=== PATIENT | male | born 1935 | race Caucasian/White ===

== ENCOUNTER 2017-07-25 12:21 | Observation (INO) | payer MEDICARE, OTHER ==
[2017-07-25] MEDS ORDERED: NovoLOG Insulin SQ PRN (12:51)
--- NOTE | 2017-07-25 13:45 | XRAY ---
Indication: Left upper abdominal pain. Urinary retention. Hypertension. Comparison: Chest exam October 01, 2009. 2 views of the abdomen nonacute and nonobstructed. Solid organs unremarkable. Scattered vascular calcifications including pelvic phleboliths. Osseous structures intact with mild osteopenia and mild lower lumbar degenerative spondylosis. Single PA chest again demonstrates normal heart and lungs. Bony thorax intact again with right shoulder arthroplasty. Impression: Nonacute abdomen with chronic features. Stable nonacute 1 view chest.
--- NOTE | 2017-07-25 14:33 | XRAY ---
Indication: Syncope. Two-dimensional sonogram and color Doppler imaging of the carotid arteries of the neck performed. Comparison: None Examination of the right carotid circulation demonstrates slightly tortuous common carotid artery. Minimal heterogeneous plaquing at the level of the bulb extending into the origin of the internal and external carotid arteries. PSV of the CCA is 82 cm/s. PSV of the ICA is 87 cm/s. ICA/CCA ratio is 1.1. Normal antegrade vertebral artery flow. Examination of the left carotid circulation demonstrates minimal plaquing at the origin of the external carotid artery. Internal carotid artery negative for focal plaquing, critical stenosis, or obstruction. PSV of the CCA is 98 cm/s. PSV of the ICA is 73 cm/s. ICA/CCA ratio is 0.7. Normal antegrade vertebral artery flow. Impression: Minimal arteriosclerotic plaquing bilaterally. Velocity measurements and ratios are negative for hemodynamically significant flow-limiting stenosis.
[2017-07-25 14:52] LABS: BASOPHIL % 0.1 % (0.0-0.4); Basophil (Absolute #) 0.01 (0-0.4); Eosinophil % 1.6 % (0.00-5.0); Eosinophil (Absolute #) 0.11 (0-0.5); Granulocyte Absolute (ANC) 4.59 (1.4-6.9); Granulocytes % 65.9 % (36.0-66.0); Hematocrit 42.1 % (42-50); Hemoglobin 14.2 gm/dl (12.5-18.0); Lymphocyte (Absolute #) 1.47 (1.0-4.6); Lymphocytes % 21.1 % (24.0-44.0); Mean Cell Volume 90.7 fl (78-100); Mean Corpuscular Hemoglobin 30.6 pg (26-32); Mean Corpuscular Hgb Concent. 33.7 g/dl (32-36); Mean Platelet Volume 9.8 fl (6-9.5); Monocyte (Absolute #) 0.79 (0.0-1.3); Monocytes % 11.3 % (0.0-12.0); Platelet Count 183 K/mm3 (150-450); Red Blood Count 4.64 M/mm3 (4.1-5.6); Red Cell Distribution Width 13.5 % (11.5-14.0)
[2017-07-25] MEDS: Sodium Chloride 0.9% 1000 ML 1,000 ML IV SCH (15:00)
[2017-07-25 15:11] LABS: ALKALINE PHOSPHATASE 81 U/L (38-126); ANION GAP 14.9 MEQ/L (5-15); BLOOD UREA NITROGEN 20 mg/dL (9-20); CHLORIDE 101 mmol/L (98-107); Calcium 9.8 mg/dL (8.4-10.2); Carbon Dioxide 27 mmol/L (22-30); Glucose 99 mg/dL (74-106); Potassium 4.5 mmol/L (3.5-5.1); SGOT/AST 20 U/L (17-59); SODIUM 138 mmol/L (137-145); Total Protein 6.7 g/dL (6.3-8.2)
[2017-07-25 15:17] LABS: SGPT/ALT 13 U/L (0-50)
[2017-07-25] MEDS: Pepcid 20 MG PO SCH ×2 (15:27→21:33)
[2017-07-25] MEDS ORDERED: NORCO 5/325 MG PO PRN (16:07)
[2017-07-25 16:11] LABS: Appearance CLEAR (CLEAR); Bilirubin NEGATIVE (NEGATIVE); Blood TRACE NON-HEM Ery/ul (0-5); Glucose NEGATIVE (NEGATIVE); Ketones NEGATIVE (NEGATIVE); Leukocyte Esterase NEGATIVE (NEGATIVE); Nitrite NEGATIVE (NEGATIVE); Protein,Urine Dip NEGATIVE (Negative); Specific Gravity 1.015 (1.005-1.025); Urobilinogen NORMAL mg/dL (0-1)
[2017-07-25] MEDS ORDERED: ZOFRAN ODT 4 MG PO PRN (16:15)
[2017-07-25] MEDS ORDERED: NON-FORMULARY ITEM (Ondansetron Hcl [Zofran] 4 MG) PO SCH (16:15)
[2017-07-25] MEDS ORDERED: MEDICATION INTERVENTION PO SCH (16:30)
[2017-07-25] MEDS: Neurontin 400 MG PO SCH ×2 (16:51→21:33)
[2017-07-25] MEDS: Sinemet 25/250 MG PO SCH ×2 (16:51→21:33)
[2017-07-25] MEDS ORDERED: TYLENOL 325 MG PO PRN (17:45)
[2017-07-25] MEDS ORDERED: DONEPEZIL HCL PO SCH (22:00)
[2017-07-25] MEDS ORDERED: Seroquel 25 MG PO SCH (22:00)
[2017-07-25] MEDS ORDERED: Zanaflex 4 MG PO SCH (22:00)
[2017-07-25] MEDS ORDERED: MEMANTINE HCL PO SCH (22:00)
[2017-07-26] MEDS: Sodium Chloride 0.9% 1000 ML 1,000 ML IV SCH (01:01)
[2017-07-26 03:02] LABS: Prostate Specific Antigen 0.91 ng/mL (<=7.20)
[2017-07-26 05:50] LABS: ANION GAP 10.7 MEQ/L (5-15); BLOOD UREA NITROGEN 17 mg/dL (9-20); CHLORIDE 104 mmol/L (98-107); Calcium 8.7 mg/dL (8.4-10.2); Carbon Dioxide 27 mmol/L (22-30); Glucose 86 mg/dL (74-106); Potassium 4.5 mmol/L (3.5-5.1); SODIUM 137 mmol/L (137-145)
[2017-07-26 07:52] VITALS: BP 125/59; O2SAT 96
[2017-07-26 08:09] VITALS: PULSE 56
[2017-07-26] MEDS: Pepcid 20 MG PO SCH (08:47)
[2017-07-26] MEDS: Neurontin 400 MG PO SCH (08:47)
[2017-07-26] MEDS: Sinemet 25/250 MG PO SCH (08:48)
--- NOTE | 2017-07-26 09:00 | PCM.DS ---
Discharge Summary Date of Admission: 07/25/17 12:31 Admitting Physician: PORSHA MERLOS Primary Care Provider: PORSHA MERLOS Allergies Allergies Sulfa (Sulfonamide Antibiotics) Allergy (Severe, Verified 02/07/17 16:35) Swelling of Tongue and Lips Hospital Summary - Hospital Course Hospital Course: Pt is 82 yo male with Parkinson's admitted to [facility] after report of syncope x 2 at home, with BP 80s systolic at home. His labs were basically normal. He had been c/o urinary retention intermittently, found to have 500cc postvoid residual with justice catheter so it was anchored and he will be discharged on same to f/u with Dr. Tomas. He has been tolerating po (although chronic low appetite). Did have 1 bp overnight 80s systolic; will decrease diovan from 80mg /d to 40mg/d and recheck in 1 wk, may need to d/c altogether with his weight loss due to Parkinson's. On telemetry, he did have frequent PACs, checking EKG , may need to consult with cardiology about his rhythm. Plan is to d/c home today. - Vitals & Intake/Output Vital Signs: Vital Signs Temperature 97.5 F 07/26/17 08:08 Pulse Rate 56 L 07/26/17 08:08 Respiratory Rate 20 07/26/17 08:08 Blood Pressure 125/59 07/26/17 08:08 O2 Sat by Pulse Oximetry 96 07/26/17 08:08 Intake & Output: Intake & Output 07/23/17 07/24/17 07/25/17 07/26/17 11:59 11:59 11:59 11:59 Intake Total 1840 Output Total 1100 Balance 740 Weight 78 kg - Lab Result Diagrams: 07/25/17 14:40 07/26/17 05:04 Lab Results-Last 24 Hrs: Accuchecks Date 07/25/17 Date 07/25/17 Date 07/25/17 Time 07:30 Time 15:55 Accucheck Value: 78 Accucheck Value: 98 Accucheck Value: 92 Lab Results-Last 24 Hours 07/25/17 07/25/17 07/25/17 Range/Units 14:40 14:40 14:40 WBC 7.0 (4.0-10.5) K/mm3 RBC 4.64 (4.1-5.6) M/mm3 Hgb 14.2 (12.5-18.0) gm/dl Hct 42.1 (42-50) % MCV 90.7 (78-100) fl MCH 30.6 (26-32) pg MCHC 33.7 (32-36) g/dl RDW 13.5 (11.5-14.0) % Plt Count 183 (150-450) K/mm3 MPV 9.8 H (6-9.5) fl Gran % 65.9 (36.0-66.0) % Eos # (Auto) 0.11 (0-0.5) Absolute Lymphs (auto) 1.47 (1.0-4.6) Absolute Monos (auto) 0.79 (0.0-1.3) Lymphocytes % 21.1 L (24.0-44.0) % Monocytes % 11.3 (0.0-12.0) % Eosinophils % 1.6 (0.00-5.0) % Basophils % 0.1 (0.0-0.4) % Absolute Granulocytes 4.59 (1.4-6.9) Basophils # 0.01 (0-0.4) Sodium 138 (137-145) mmol/L Potassium 4.5 (3.5-5.1) mmol/L Chloride 101 (98-107) mmol/L Carbon Dioxide 27 (22-30) mmol/L Anion Gap 14.9 (5-15) MEQ/L BUN 20 (9-20) mg/dL Creatinine 0.90 (0.66-1.25) mg/dL Estimated GFR > 60.0 ML/MIN Glucose 99 (74-106) mg/dL Calcium 9.8 (8.4-10.2) mg/dL Total Bilirubin 0.30 (0.2-1.3) mg/dL AST 20 (17-59) U/L ALT 13 (0-50) U/L Alkaline Phosphatase 81 (38-126) U/L Serum Total Protein 6.7 (6.3-8.2) g/dL Albumin 4.0 (3.5-5.0) g/dL Prostate Specific Ag 0.91 (<=7.20) ng/mL Free PSA 21 % Ur Collection Type Urine Color (YELLOW) Urine Appearance (CLEAR) Urine pH (5-6) Ur Specific [place] (1.005-1.025) Urine Protein (Negative) Urine Ketones (NEGATIVE) Urine Blood (0-5) [place]/ul Urine Nitrite (NEGATIVE) Urine Bilirubin (NEGATIVE) Urine Urobilinogen (0-1) mg/dL Ur Leukocyte Esterase (NEGATIVE) Urine Microscopic RBC (0-2) /HPF Urine Glucose (NEGATIVE) mg/dL Specimen Received 07/25/17 07/26/17 Range/Units Unknown 05:04 WBC (4.0-10.5) K/mm3 RBC (4.1-5.6) M/mm3 Hgb (12.5-18.0) gm/dl Hct (42-50) % MCV (78-100) fl MCH (26-32) pg MCHC (32-36) g/dl RDW (11.5-14.0) % Plt Count (150-450) K/mm3 MPV (6-9.5) fl Gran % (36.0-66.0) % Eos # (Auto) (0-0.5) Absolute Lymphs (auto) (1.0-4.6) Absolute Monos (auto) (0.0-1.3) Lymphocytes % (24.0-44.0) % Monocytes % (0.0-12.0) % Eosinophils % (0.00-5.0) % Basophils % (0.0-0.4) % Absolute Granulocytes (1.4-6.9) Basophils # (0-0.4) Sodium 137 (137-145) mmol/L Potassium 4.5 (3.5-5.1) mmol/L Chloride 104 (98-107) mmol/L Carbon Dioxide 27 (22-30) mmol/L Anion Gap 10.7 (5-15) MEQ/L BUN 17 (9-20) mg/dL Creatinine 0.80 (0.66-1.25) mg/dL Estimated GFR > 60.0 ML/MIN Glucose 86 (74-106) mg/dL Calcium 8.7 (8.4-10.2) mg/dL Total Bilirubin (0.2-1.3) mg/dL AST (17-59) U/L ALT (0-50) U/L Alkaline Phosphatase (38-126) U/L Serum Total Protein (6.3-8.2) g/dL Albumin (3.5-5.0) g/dL Prostate Specific Ag (<=7.20) ng/mL Free PSA % Ur Collection Type CCMS Urine Color YELLOW (YELLOW) Urine Appearance CLEAR (CLEAR) Urine pH 5.0 (5-6) Ur Specific [place] 1.015 (1.005-1.025) Urine Protein NEGATIVE (Negative) Urine Ketones NEGATIVE (NEGATIVE) Urine Blood TRACE NON-HEM (0-5) [place]/ul Urine Nitrite NEGATIVE (NEGATIVE) Urine Bilirubin NEGATIVE (NEGATIVE) Urine Urobilinogen NORMAL (0-1) mg/dL Ur Leukocyte Esterase NEGATIVE (NEGATIVE) Urine Microscopic RBC 0-2 (0-2) /HPF Urine Glucose NEGATIVE (NEGATIVE) mg/dL Specimen Received 07-25-17 1600 Micro Results-Entire Visit: Accuchecks Date 07/25/17 Date 07/25/17 Date 07/25/17 Time 07:30 Time 15:55 Accucheck Value: 78 Accucheck Value: 98 Accucheck Value: 92 - Radiology Exams Ordered Rad Exams-Entire Visit: Radiology Procedures Category Date Time Status CAROTID BILATERAL [US] Routine Exams 07/25/17 13:15 Completed ECHO W/2D AND DOPPLER [US] Routine Exams 07/25/17 13:15 Taken OBSTR/ACUTE ABDOMEN SERIES Routine Exams 07/25/17 13:32 Completed - Procedures and Test Procedures and Tests throughout Hospitalization: Therapy Orders & Screens 07/25/17 13:05 PT Eval & Treat ( Order) ROUTINE Reason for Eval:: for balance and for blister right plantar foot Diagnosis: syncope,hypotention,parkinsons,urinary retention,abd pain 07/26/17 08:54 EKG ROUTINE Comment: Diagnosis: syncope Discharge Exam General Appearance: no apparent distress, alert Neurologic Exam: oriented x 3, cooperative Skin Exam: normal color, warm, dry, No rash Respiratory Exam: normal breath sounds, lungs clear, No crackles/rales, No rhonchi, No wheezing Cardiovascular Exam: normal heart sounds, other (regularly irregula), No murmur Gastrointestinal/Abdomen Exam: soft, normal bowel sounds, No tenderness Extremity Exam: No pedal edema, No swelling Back Exam: normal inspection, No rash Final Diagnosis/Problem List - Final Discharge Diagnosis/Problem (1) Episode of syncope Current Visit: Yes Status: Acute Onset Date: ~07/25/17 Assessment & Plan: Likely due to hypotension. Echo pending. Carotid dopplers non occluded. (2) Hypotension Current Visit: Yes Status: Acute Onset Date: ~07/25/17 Assessment & Plan: Valsartan decreased from 80mg/d to 40mg/d. (3) Parkinsons disease Current Visit: Yes Status: Chronic (4) Urinary retention Current Visit: Yes Status: Acute Onset Date: ~07/25/17 Assessment & Plan: Justice in place, will leave it until f/u with urology. - Discharge Disposition: Home, Self-Care Condition: Stable Prescriptions: New Valsartan 40 mg PO DAILY #30 tablet Continue Linaclotide [Linzess] 290 mcg PO DAILY Aspirin [[place] Aspirin] 81 mg PO DAILY Metformin HCl 500 mg [Glucophage 500 MG] 500 mg PO BID Gabapentin 400 mg [Neurontin 400 MG] 400 mg PO QID Carbidopa/Levodopa [Carbidopa-Levodopa 25-250 Tab] 1 each PO TID Omeprazole 20 mg PO DAILY Tizanidine HCl 4 mg [Zanaflex 4 MG] 4 mg PO HS Quetiapine Fumarate 25 mg [Seroquel 25 MG] 25 mg PO HS Ondansetron HCl [Zofran] 4 mg PO Q8H Memantine HCl/Donepezil HCl [Namzaric 28 mg-10 mg Capsule] 1 each PO HS Hydrocodone Bit/Acetaminophen [Hydrocodon-Acetaminophen 5-325] 1 each PO Q8H PRN PRN Reason: Pain Discontinued Valsartan [Diovan] 80 mg PO DAILY Follow up with: KENYETTA TOMAS [COURTESY STAFF] - 08/03/17 10:45 am PORSHA MERLOS [Primary Care Provider] - 1 Week
[2017-07-26] MEDS ORDERED: ECOTRIN 81 MG PO SCH (10:00)
[2017-07-26] MEDS ORDERED: Protonix 40MG Tablet PO SCH (10:00)
[2017-07-26] MEDS ORDERED: DIOVAN 80 MG PO SCH ×2 (10:00)
[2017-07-26] MEDS ORDERED: NON-FORMULARY ITEM (Omeprazole [Omeprazole] 20 MG) PO SCH (10:00)
--- NOTE | 2017-07-27 07:45 | ECHO ---
Transthoracic echocardiographic examination and color Doppler was done on 07/25/2017. INDICATION: Syncope. The study was somewhat limited. The left ventricle only partially visualized. The estimated global left ventricular ejection fraction is around 50%. There appears to be some left ventricular hypertrophy. There is trace tricuspid regurgitation. Right ventricular systolic pressure of 28 mm of [place]. IMPRESSION: THIS IS A FAIRLY LIMITED STUDY BECAUSE OF A LIMITED ACOUSTIC WINDOW.
== END 2017-07-26 11:33 | disposition home or self-care (01) ==
LOC: MED SURG 12:31
PROVIDERS: ADMIT Family Medicine; ATTEND Family Medicine
DX: R55 Syncope and collapse (principal); I95.9 Hypotension, unspecified; G20 Parkinson's disease; R33.9 Retention of urine, unspecified; L57.0 Actinic keratosis; R10.9 Unspecified abdominal pain; E11.40 Type 2 diabetes mellitus with diabetic neuropathy, unspecified; Z79.4 Long term (current) use of insulin; Z79.899 Other long term (current) drug therapy
CPT/HCPCS: 36415; 74022; 80048; 80053; 81000; 82962; 84153; 84154; 85025; 93005; 93268; 93306; 93880; A9270-GY; G0378

== ENCOUNTER 2017-08-19 21:40 | Emergency (ER) | payer MEDICARE, OTHER ==
--- NOTE | 2017-08-19 22:28 | ERPHSYRPT ---
- History of Present Illness Time Seen by Provider: 08/19/17 22:20 Source: family, EMS Patient Subjective Stated Complaint: pt states fell after standing up. hit right chest on furniture. pain in right ribs. bruising noted to both arms. abrasion noted to left elbow. doesnt know what happened. Triage Nursing Assessment: alert and slightly confused.. states this is normal. noted abrasion to left cheek. states has his glasses on when he fell. small abrasion ro right cheek. states he is unsteady on his feet due to Parkinsons. denies neck pain.. right rib pain..pain on palpation and movement. states he thinks he hit it on a TV cabinet. lungs clear . abdomen soft, non tender. noted bilateral bruising to both arms.. abrasion to left elbow.. slight pain with movement.. + radial pulses present.. denies hip or leg pain .. states just feels heavy. + pedal pulses bilateral. neuro intact.. 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 OROURKE. aware of date, time and location. Physician History: The patient is an 82-year-old male with Parkinson's dementia brought in by ambulance from home where his gives most of the history. The patient is coherent at this time and knows that he fell while he was at home trying to answer the door when he was expecting his daughter. He thinks he struck his left side of his face on a piece of furniture and his right ribs and right shoulder on some furniture. His thinks his blood pressure my have been low. 3 weeks ago he was in the hospital for low blood pressure and his antihypertensives have been lowered. The daughter took his blood pressure after the incident and it was 70s over 50. Currently he complains of pain to his left cheek, right shoulder, and right lower ribs. His past medical history is significant for Parkinson's dementia, hypertension, right shoulder replacement, diabetes, and GERD. Occurred: just prior to arrival Reason for Fall: fainted, fell from standing pos Injuries/Pain Location: face, upper extremity (right shoulder), chest Loss of Consciousness: brief (seconds) Quality: aching, sharpness Severity of Pain-Max: moderate Severity of Pain-Current: moderate Modifying Factors: Improves With: nothing Associated Symptoms (Fall): chest pain, extremity injury Allergies/Adverse Reactions: Sulfa (Sulfonamide Antibiotics) Allergy (Severe, Verified 02/07/17 16:35) Swelling of Tongue and Lips Home Medications: Aspirin [[place] Aspirin] 81 mg PO DAILY 02/07/17 [History] Carbidopa/Levodopa [Carbidopa-Levodopa 25-250 Tab] 1 each PO TID 02/07/17 [ History] Gabapentin 400 mg [Neurontin 400 MG] 400 mg PO QID 02/07/17 [History] Linaclotide [Linzess] 290 mcg PO DAILY 02/07/17 [History] Metformin HCl 500 mg [Glucophage 500 MG] 500 mg PO BID 02/07/17 [History] Omeprazole 20 mg PO BID 02/07/17 [History] Tizanidine HCl 4 mg [Zanaflex 4 MG] 4 mg PO HS 07/03/17 [History] Hydrocodone Bit/Acetaminophen [Hydrocodon-Acetaminophen 5-325] 1 each PO Q8H PRN 07/25/17 [History] Memantine HCl/Donepezil HCl [Namzaric 28 mg-10 mg Capsule] 1 each PO HS [History] Ondansetron HCl [Zofran] 4 mg PO Q8H 07/25/17 [History] Quetiapine Fumarate 25 mg [Seroquel 25 MG] 25 mg PO HS 07/25/17 [History] Immunizations Up to Date: (unknown) - Review of Systems Constitutional: No Fever, No Chills Eyes: No Symptoms Ears, Nose, & Throat: No Symptoms Respiratory: No Cough, No Dyspnea Cardiac: Chest Pain (rib pain) Abdominal/Gastrointestinal: No Abdominal Pain, No Nausea, No Vomiting, No Diarrhea Genitourinary Symptoms: No Dysuria Musculoskeletal: Fall, Injury Skin: No Rash Neurological: No Dizziness, No Focal Weakness, No Sensory Changes Psychological: No Symptoms Endocrine: No Symptoms Hematologic/Lymphatic: No Symptoms Immunological/Allergic: No Symptoms All Other Systems: Reviewed and Negative - Past Medical History Pertinent Past Medical History: Yes Neurological History: Dementia, Other ENT History: No Pertinent History Cardiac History: Arrhythmia, High Cholesterol, Hypertension Respiratory History: No Pertinent History Endocrine Medical History: Diabetes Type II Musculoskeletal History: Arthritis GI Medical History: Hemorrhoids History: No Pertinent History Psycho-Social History: No Pertinent History Male Reproductive Disorders: No Pertinent History Other Medical History: parkinsons, - Past Surgical History Past Surgical History: Yes Neuro Surgical History: No Pertinent History Cardiac: No Pertinent History Respiratory: No Pertinent History Gastrointestinal: No Pertinent History Genitourinary: No Pertinent History Musculoskeletal: Other Male Surgical History: No Pertinent History Other Surgical History: right shoulder surgery, egd and coloscopy. - Social History Smoking Status: Never smoker Exposure to second hand smoke: No Drug Use: none Patient Lives Alone: No - Nursing Vital Signs Nursing Vital Signs: Initial Vital Signs Temperature 97.5 F 08/19/17 21:48 Pulse Rate 58 L 08/19/17 21:48 Respiratory Rate 20 08/19/17 21:48 Blood Pressure 98/76 08/19/17 21:48 O2 Sat by Pulse Oximetry 95 08/19/17 21:48 Pain Scale Pain Intensity 5 - [place] Coma Score Best Eye Response ([place]): (4) open spontaneously Best Verbal Response ([place]): (5) oriented Best Motor Response ([place]): (6) obeys commands [place] Total: 15 - Physical Exam General Appearance: moderate distress Head Injury: contusions, tenderness (right cheek) Eye Exam: PERRL/EOMI ENT Exam: airway nml Neck Exam: normal inspection, No tenderness Respiratory/Chest Exam: chest tenderness (right rib tenderness), rib tenderness (right lower anterior) Cardiovascular Exam: normal heart sounds, regular rate/rhythm Gastrointestinal Exam: soft, No tenderness, No distention, No guarding, No ecchymosis Rectal Exam: not done Back Exam: normal inspection, No vertebral tenderness Extremity Exam: pain with movement (right shoulder) Neurologic Exam: alert, oriented x 3, cooperative, sensation nml, No motor deficits Skin Exam: normal color, warm, dry SpO2 Interpretation: normal SpO2: 95 Oxygen Delivery: Room Air - Radiology Exams Right Shoulder X-ray Interpretation: Interpreted by me, Negative, No Fracture Right Ribs X-ray Interpretation: Interpreted by me, Negative, No Fracture, No Pneumothorax Chest X-ray Interpretation: Interpreted by me, Negative, No Pneumothorax - CT Exams Head CT Interpretation: Negative, Tele-radiologist Report, No/Intracranial Hemorrhag (per Dr Colby.) Cervical Spine CT Interpretation: Negative, Tele-radiologist Report (Per Dr Colby.) Maxillofacial Bones CT Interpretation: Negative, Tele-radiologist Report, No Fracture (Per Dr Colby.) Ordered Tests: Active Orders 24 hr Category Date Time Status IV Insertion STAT Care 08/19/17 22:34 Active CERVICAL SPINE WO CONTRAST [CT] Stat Exams 08/19/17 22:35 Ordered CHEST 2 VIEWS (PA AND LAT) Stat Exams 08/19/17 22:34 Ordered FACIAL BONES WO CONTRAST [CT] Stat Exams 08/19/17 22:36 Ordered HEAD WITHOUT CONTRAST [CT] Stat Exams 08/19/17 22:35 Ordered RIBS UNILATERAL Stat Exams 08/19/17 22:34 Ordered SHOULDER Stat Exams 08/19/17 22:34 Ordered BMP Stat Lab 08/19/17 23:00 Completed CBC W DIFF Stat Lab 08/19/17 23:00 Completed Medication Summary Discontinued Medications Generic Name Dose Route Start Last Admin Trade Name Freq PRN Reason Stop Dose Admin Sodium Chloride 1,000 mls @ 999 mls/hr 08/19/17 22:34 Sodium Chloride 0.9% 1000 Ml IV 08/19/17 23:34 .Q1H1M STA Lab/Rad Data: Laboratory Result Diagrams 08/19/17 23:00 08/19/17 23:00 Laboratory Results 08/19/17 08/19/17 Range/Units 23:00 23:00 WBC 9.5 (4.0-10.5) K/mm3 RBC 4.17 (4.1-5.6) M/mm3 Hgb 12.8 (12.5-18.0) gm/dl Hct 38.4 L (42-50) % MCV 92.1 (78-100) fl MCH 30.7 (26-32) pg MCHC 33.3 (32-36) g/dl RDW 13.9 (11.5-14.0) % Plt Count 199 (150-450) K/mm3 MPV 9.6 H (6-9.5) fl Gran % 77.9 H (36.0-66.0) % Eos # (Auto) 0.09 (0-0.5) Absolute Lymphs (auto) 1.19 (1.0-4.6) Absolute Monos (auto) 0.82 (0.0-1.3) Lymphocytes % 12.5 L (24.0-44.0) % Monocytes % 8.6 (0.0-12.0) % Eosinophils % 0.9 (0.00-5.0) % Basophils % 0.1 (0.0-0.4) % Absolute Granulocytes 7.41 H (1.4-6.9) Basophils # 0.01 (0-0.4) Sodium 137 (137-145) mmol/L Potassium 4.1 (3.5-5.1) mmol/L Chloride 105 (98-107) mmol/L Carbon Dioxide 24 (22-30) mmol/L Anion Gap 12.1 (5-15) MEQ/L BUN 18 (9-20) mg/dL Creatinine 0.77 (0.66-1.25) mg/dL Estimated GFR > 60.0 ML/MIN Glucose 109 H (74-106) mg/dL Calcium 8.9 (8.4-10.2) mg/dL - Progress Progress: unchanged Counseled pt/family regarding: lab results, diagnosis, need for follow-up, rad results - Departure Time of Disposition: 00:44 Departure Disposition: Home Clinical Impression: Hypotension, Fall, Multiple contusions Condition: Stable Critical Care Time: No Referrals: PORSHA MERLOS [Primary Care Provider] - Additional Instructions: You had a fall this evening that was likely due to low blood pressure. You were given fluids by IV in the ER. Take [place] one tablet every 4-6 hours as needed for pain. Follow up with your primary medical doctor in one to 2 days.
[2017-08-19] MEDS ORDERED: Sodium Chloride 0.9% 1000 ML 1,000 ML IV STA (22:34)
[2017-08-19 23:03] LABS: BASOPHIL % 0.1 % (0.0-0.4); Basophil (Absolute #) 0.01 (0-0.4); Eosinophil % 0.9 % (0.00-5.0); Eosinophil (Absolute #) 0.09 (0-0.5); Granulocyte Absolute (ANC) 7.41 (1.4-6.9); Granulocytes % 77.9 % (36.0-66.0); Hematocrit 38.4 % (42-50); Hemoglobin 12.8 gm/dl (12.5-18.0); Lymphocyte (Absolute #) 1.19 (1.0-4.6); Lymphocytes % 12.5 % (24.0-44.0); Mean Cell Volume 92.1 fl (78-100); Mean Corpuscular Hemoglobin 30.7 pg (26-32); Mean Corpuscular Hgb Concent. 33.3 g/dl (32-36); Mean Platelet Volume 9.6 fl (6-9.5); Monocyte (Absolute #) 0.82 (0.0-1.3); Monocytes % 8.6 % (0.0-12.0); Platelet Count 199 K/mm3 (150-450); Red Blood Count 4.17 M/mm3 (4.1-5.6); Red Cell Distribution Width 13.9 % (11.5-14.0); White Blood Count 9.5 K/mm3 (4.0-10.5)
[2017-08-19 23:18] LABS: ANION GAP 12.1 MEQ/L (5-15); BLOOD UREA NITROGEN 18 mg/dL (9-20); CHLORIDE 105 mmol/L (98-107); Calcium 8.9 mg/dL (8.4-10.2); Carbon Dioxide 24 mmol/L (22-30); Creatinine 1 0.77 mg/dL (0.66-1.25); Glucose 109 mg/dL (74-106); Potassium 4.1 mmol/L (3.5-5.1); SODIUM 137 mmol/L (137-145)
[2017-08-20] MEDS ORDERED: NORCO 5/325 MG PO ONE (00:46)
[2017-08-20] MEDS ORDERED: NORCO 5/325 MG ONE (01:19)
[2017-08-20 01:34] VITALS: BP 144/68; PULSE 69; O2SAT 94
--- NOTE | 2017-08-20 08:47 | XRAY ---
Indication: Pain following fall. Multiple contiguous axial images obtained through the head without contrast. Comparison: None Age-appropriate global atrophy and mild periventricular degenerative micro-ischemia bilaterally. No acute intracranial hemorrhage, abnormal extra-axial fluid collection, or mass effect. Fourth ventricle is midline without hydrocephalus. Bony calvarium intact. Visualized paranasal sinuses and mastoid air cells are clear. Impression: Nonacute senile brain. Comment: Preliminary interpretation was made by [facility]. No discrepancy. CT DI 48.07
--- NOTE | 2017-08-20 08:51 | XRAY ---
Indication: Pain following fall. Multiple contiguous axial images obtained through the facial bones. Sagittal and coronal reformatted images obtained. Comparison: None Several inferior images are degraded by motion artifact and there is beam artifact from multiple bilateral dental amalgams. Bilateral mandible body bony exostosis. No acute fracture, suspicious bony lesions, or radiopaque foreign body. Orbits including roof, ramírez, and floors intact. Paranasal sinuses and nasal passages are clear. There has been bilateral maxillary sinus antrectomy surgery. Visualized noncontrasted soft tissues unremarkable. CT head and CT cervical spine reported separately. Impression: 1. Mild motion artifact. 2. Bilateral mandible body bony exostosis. 3. Remaining CT facial bones negative. Comment: Preliminary interpretation was made by [facility]. No discrepancy. CT DI 59.47
--- NOTE | 2017-08-20 08:53 | XRAY ---
Indication: Pain following fall. Multiple contiguous axial images obtained through the cervical spine. Sagittal and coronal reformatted images obtained. Comparison: None Axial images negative for acute fracture, suspicious bony lesions, or spinal canal stenosis. Mild C3-C6 degenerative endplate spurring. Minimal multilevel bilateral degenerative facet arthropathy and mild atlantoaxial degenerative changes. Sagittal and coronal reformatted images demonstrates normal alignment. Minimal C3-C4 and C5-C6 disc space narrowing. No acute compression fracture, subluxation, or jumped facet. Normal appearing craniocervical junction. Visualized noncontrasted soft tissues demonstrates mild bilateral carotid calcifications. Lung apices clear. CT head and CT facial bones reported separately. Impression: 1. Negative acute fracture/subluxation. 2. Multilevel degenerative changes. Comment: Preliminary interpretation was made by [facility]. No discrepancy. CT DI 106.73
--- NOTE | 2017-08-20 08:55 | XRAY ---
Indication: Pain following fall. Comparison: None 2 views of the right ribs demonstrates osteopenia, mild multilevel degenerative spondylosis, mild AC degenerative arthropathy, and previous right shoulder arthroplasty with intact prosthesis. No other bony, articular, or soft tissue abnormalities.
--- NOTE | 2017-08-20 08:57 | XRAY ---
Indication: Pain following fall. Comparison: None 3 views of the right shoulder demonstrates osteopenia, mild multilevel degenerative spondylosis, mild AC degenerative arthropathy, and previous shoulder arthroplasty with intact prosthesis. No other bony, articular, or soft tissue abnormalities.
--- NOTE | 2017-08-20 08:58 | XRAY ---
Indication: Pain following fall. Comparison: October 01, 2009. AP/lateral chest again hyperinflated and clear again with incidental tiny calcified granulomas. Heart is not enlarged. Descending aorta again slightly tortuous. Bony thorax intact with osteopenia, degenerative changes, and right shoulder arthroplasty. Impression: Nonacute hyperinflated chest with chronic features.
== END 2017-08-20 01:36 | disposition home or self-care (01) ==
LOC: ED 21:40
DX: I95.9 Hypotension, unspecified (principal); S00.83XA Contusion of other part of head, initial encounter; S40.011A Contusion of right shoulder, initial encounter; S20.211A Contusion of right front wall of thorax, initial encounter; R07.9 Chest pain, unspecified; W18.30XA Fall on same level, unspecified, initial encounter; Y92.009 Unspecified place in unspecified non-institutional (private) residence as the place of occurrence of the external cause; Z79.899 Other long term (current) drug therapy; Z79.82 Long term (current) use of aspirin; E11.9 Type 2 diabetes mellitus without complications; Z79.84 Long term (current) use of oral hypoglycemic drugs; G20 Parkinson's disease; F02.80 Dementia in other diseases classified elsewhere, unspecified severity, without behavioral disturbance, psychotic disturbance, mood disturbance, and anxiety
CPT/HCPCS: 36415; 70450; 70486; 71046; 71100; 72125; 73030; 80048; 85025; 99283; 99284; A9270-GY

== ENCOUNTER 2018-03-27 11:27 | Day surgery (SDC) | payer MEDICARE, OTHER ==
[2018-03-27] MEDS ORDERED: Depo-Medrol 40 MG/ML IM ONE (11:28)
[2018-03-27] MEDS ORDERED: Xylocaine-Mpf 2% 5 Ml Vial IJ ONE (11:28)
[2018-03-27] MEDS ORDERED: DIPRIVAN 200 MG/20 ML IV ONE (11:28)
[2018-03-27] MEDS ORDERED: Xylocaine 1% Vial 30 ML PF IJ ONE (11:28)
[2018-03-27] MEDS ORDERED: Robinul 0.4 MG/2 ML IV ONE (12:15)
--- NOTE | 2018-03-27 14:15 | XRAY ---
Indication: Bilateral L4-S1 MBB. Intraoperative fluoroscopy was provided for 8 seconds. Single digital spot image submitted for interpretation demonstrates posterior spinal needle tips projecting over the expected course of the left and right L4-S1 nerve roots. Correlate with intraoperative findings/report.
--- NOTE | 2018-03-27 14:36 | XRAY ---
8 seconds of fluoroscopy was used in surgery for bilateral L4-S1 MBB.
[2018-03-27] MEDS ORDERED: Lactated Ringers 1,000 ML IV ONE (14:47)
== END 2018-03-27 12:27 | disposition home or self-care (01) ==
LOC: SDC-PAIN 11:27
PROVIDERS: ATTEND Psychiatry & Neurology Pain Medicine
DX: M47.817 Spondylosis without myelopathy or radiculopathy, lumbosacral region (principal); E11.9 Type 2 diabetes mellitus without complications; I10 Essential (primary) hypertension; G20 Parkinson's disease; G30.9 Alzheimer's disease, unspecified; F02.80 Dementia in other diseases classified elsewhere, unspecified severity, without behavioral disturbance, psychotic disturbance, mood disturbance, and anxiety
CPT/HCPCS: 64493; 64494; 72020; 77003; 82962; 99100; J1030; J2001; J2704

== ENCOUNTER 2018-05-22 10:43 | Day surgery (SDC) | payer MEDICARE, OTHER ==
[2018-05-22] MEDS ORDERED: Depo-Medrol 40 MG/ML IM ONE (10:44)
[2018-05-22] MEDS ORDERED: Marcaine 0.5% SDV 10 ML IJ ONE (10:44)
[2018-05-22] MEDS ORDERED: DIPRIVAN 200 MG/20 ML IV ONE (10:44)
[2018-05-22] MEDS ORDERED: Lactated Ringers 1,000 ML IV ONE (12:05)
[2018-05-22] MEDS ORDERED: D5w 100ML Mini Bag 100 ML 100 ML IV ONE (12:10)
--- NOTE | 2018-05-22 14:41 | XRAY ---
Indication: Bilateral L4-S1 MBB. Intraoperative fluoroscopy was provided for 13 seconds. Single digital spot image submitted for interpretation demonstrates posterior spinal needle tips projecting over the expected course the left and right L4-S1 nerve roots. Correlate with intraoperative findings/report.
--- NOTE | 2018-05-22 14:57 | XRAY ---
13 seconds fluoroscopy time in surgery for L4-S1 MBB.
== END 2018-05-22 12:53 | disposition home or self-care (01) ==
LOC: SDC-PAIN 10:43
PROVIDERS: ATTEND Psychiatry & Neurology Pain Medicine
DX: M47.817 Spondylosis without myelopathy or radiculopathy, lumbosacral region (principal); I10 Essential (primary) hypertension; E11.9 Type 2 diabetes mellitus without complications; G20 Parkinson's disease; G30.9 Alzheimer's disease, unspecified; F02.80 Dementia in other diseases classified elsewhere, unspecified severity, without behavioral disturbance, psychotic disturbance, mood disturbance, and anxiety; Z79.899 Other long term (current) drug therapy
CPT/HCPCS: 64493; 64494; 72020; 77002; 82962; 99100; J1030; J2704

== ENCOUNTER 2018-08-27 12:45 | Emergency (ER) | payer MEDICARE, OTHER ==
[2018-08-27] MEDS ORDERED: Sodium Chloride 0.9% 1000 ML 1,000 ML IV STA (13:04)
[2018-08-27 13:22] LABS: BASOPHIL % 0.2 % (0.0-0.4); Basophil (Absolute #) 0.02 (0-0.4); Eosinophil % 1.6 % (0.00-5.0); Eosinophil (Absolute #) 0.14 (0-0.5); Granulocytes % 47.5 % (36.0-66.0); Hematocrit 43.5 % (42-50); Hemoglobin 14.1 gm/dl (12.5-18.0); Lymphocyte (Absolute #) 3.42 (1.0-4.6); Lymphocytes % 38.7 % (24.0-44.0); Mean Cell Volume 93.5 fl (78-100); Mean Corpuscular Hemoglobin 30.3 pg (26-32); Mean Corpuscular Hgb Concent. 32.4 g/dl (32-36); Mean Platelet Volume 9.7 fl (6-9.5); Monocyte (Absolute #) 1.06 (0.0-1.3); Platelet Count 220 K/mm3 (150-450); Red Blood Count 4.65 M/mm3 (4.1-5.6); Red Cell Distribution Width 14.2 % (11.5-14.0); White Blood Count 8.8 K/mm3 (4.0-10.5)
[2018-08-27 13:39] LABS: ALKALINE PHOSPHATASE 69 U/L (38-126); ANION GAP 16.1 MEQ/L (5-15); BLOOD UREA NITROGEN 15 mg/dL (9-20); CHLORIDE 102 mmol/L (98-107); Calcium 9.7 mg/dL (8.4-10.2); Carbon Dioxide 25 mmol/L (22-30); Creatinine 1 0.99 mg/dL (0.66-1.25); Glucose 118 mg/dL (74-106); Potassium 4.2 mmol/L (3.5-5.1); SGOT/AST 23 U/L (17-59); SGPT/ALT 8 U/L (0-50); SODIUM 139 mmol/L (137-145)
[2018-08-27] MEDS ORDERED: Sodium Chloride 0.9% 1000 ML 1,000 ML ONE (13:41)
--- NOTE | 2018-08-27 13:47 | XRAY ---
Indication: Syncope. Multiple contiguous axial images obtained through the head without contrast. Comparison: August 19, 2017. Stable age-related global atrophy and mild periventricular degenerative micro-ischemia bilaterally. Again no acute intracranial hemorrhage, abnormal extra-axial fluid collection, or mass effect. Fourth ventricle is midline without hydrocephalus. Bony calvarium intact. Visualized paranasal sinuses and mastoid air cells are clear. Impression: Stable nonacute senile brain. CT DI 68.15
[2018-08-27] MEDS ORDERED: TYLENOL EXTRA STRENGTH 500 MG PO STA (14:25)
[2018-08-27] MEDS ORDERED: TYLENOL EXTRA STRENGTH 500 MG ONE (14:27)
[2018-08-27 15:46] LABS: Appearance CLEAR (CLEAR); Bilirubin NEGATIVE (NEGATIVE); Blood NEGATIVE Ery/ul (0-5); Glucose NEGATIVE (NEGATIVE); Ketones TRACE (NEGATIVE); Leukocyte Esterase NEGATIVE (NEGATIVE); Mucus SLIGHT /HPF (NEGATIVE); Nitrite NEGATIVE (NEGATIVE); Protein,Urine Dip NEGATIVE (Negative); Specific Gravity 1.015 (1.005-1.025); Urobilinogen NEGATIVE mg/dL (0-1)
--- NOTE | 2018-08-27 16:31 | ERPHSYRPT ---
- History of Present Illness Source: family Exam Limitations: clinical condition Patient Subjective Stated Complaint: pt arrives per pain management staff, they report pt was waiting for his regular scheduled appointment and became hot, nauseated and faint. staff report pt was slow to respond to them initially, pt reports mid back pain and headache at this time. pt and deny LOC, pt remained sitting upright during episode. Triage Nursing Assessment: pt is aox3, pt answers questions appropriately, pupils perrl, afebrile, resps easy and non labored, radial pulses strong and equal, hand groundwater consultant equal, cap refill, 3 seconds, pt skin pale warm dry. tremor noted to the right hand. Physician History: Pt is 83 y/o male with a h/o Parkinson's and dementia. He presented to the ED from his pain management physician's office. Pt was waiting for the doctor for a long time, and slowly started feeling bad. He developed nausea, was clammy and felt like he is going to vomit and collapse. Per pt never actually lost consciousness, but he became pale and did not answer any questions for a few minutes. Pt is now feeling better with IVF. He denies F/C/S. No SOB or cough. No chest pain or palpitations. Pt's answers most questions, secondary to pt's condition. Prior Episodes: single episode today Timing/Duration: today Precipitating Factors: diaphoresis, lightheadedness, nausea Charcter of event(s): became unresponsive (No LOC) Allergies/Adverse Reactions: Sulfa (Sulfonamide Antibiotics) Allergy (Severe, Verified 08/27/18 13:17) Swelling of Tongue and Lips Home Medications: Aspirin EC 81 mg [Ecotrin 81 mg] 81 mg PO DAILY 08/27/18 [History] Carbidopa/Levodopa [Carbidopa-Levodopa 25-250 Tab] 1 each PO TID 08/27/18 [ History] Diphenhydramine HCl [Sleep-Aid] 25 mg PO HS 08/27/18 [History] Gabapentin 400 mg [Neurontin 400 MG] 400 mg PO TID 08/27/18 [History] Losartan Potassium [Cozaar] 25 mg PO UD 08/27/18 [History] Melatonin 10 mg PO HS 08/27/18 [History] Memantine HCl/Donepezil HCl [Namzaric 28 mg-10 mg Capsule] 1 each PO HS [History] Metformin HCl 500 mg [Glucophage 500 MG] 500 mg PO BIDWM 08/27/18 [History ] Omeprazole 20 mg PO DAILY 08/27/18 [History] Hx Tetanus, Diphtheria Vaccination/Date Given: No Hx Influenza Vaccination/Date Given: Yes Hx Pneumococcal Vaccination/Date Given: Yes Immunizations Up to Date: Yes - Past Medical History Pertinent Past Medical History: Yes Neurological History: Dementia, Other ENT History: No Pertinent History Cardiac History: Arrhythmia, High Cholesterol, Hypertension Respiratory History: No Pertinent History Endocrine Medical History: Diabetes Type II Musculoskeletal History: Arthritis GI Medical History: Hemorrhoids History: No Pertinent History Psycho-Social History: No Pertinent History Male Reproductive Disorders: No Pertinent History Other Medical History: parkinsons, - Past Surgical History Past Surgical History: Yes Neuro Surgical History: No Pertinent History Cardiac: No Pertinent History Respiratory: No Pertinent History Gastrointestinal: No Pertinent History Genitourinary: No Pertinent History Musculoskeletal: Other Male Surgical History: No Pertinent History Other Surgical History: right shoulder surgery, egd and coloscopy. steroid injection to lumbar area x 2 for chronic back pain - Social History Smoking Status: Never smoker Exposure to second hand smoke: No Drug Use: none Patient Lives Alone: No - Review of Systems Constitutional: Malaise Eyes: No Symptoms Ears, Nose, & Throat: No Symptoms Respiratory: No Cough, No Dyspnea Cardiac: No Chest Pain, No Edema, No Syncope Abdominal/Gastrointestinal: No Abdominal Pain, No Nausea, No Vomiting, No Diarrhea Musculoskeletal: Back Pain (The reson he was at pain management's office.) Neurological: Dizziness, No Focal Weakness, No Sensory Changes Physical Exam - Nursing Vital Signs Nursing Vital Signs: Initial Vital Signs Temperature 98.4 F 08/27/18 12:47 Pulse Rate 76 08/27/18 12:47 Respiratory Rate 20 08/27/18 12:47 Blood Pressure 121/69 08/27/18 12:47 O2 Sat by Pulse Oximetry 93 L 08/27/18 12:47 Pain Scale Pain Intensity 8 - Isatu Coma Scale Best Eye Response ([place]): (4) open spontaneously Best Verbal Response ([place]): (5) oriented Best Motor Response ([place]): (6) obeys commands Isatu Total: 15 - Physical Exam General Appearance: no apparent distress, alert Eye Exam: bilateral eye: normal inspection, PERRL, EOMI Ears, Nose, Throat Exam: normal ENT inspection, pharynx normal, moist mucous membranes Neck Exam: normal inspection, non-tender, supple, full range of motion Respiratory: normal breath sounds, lungs clear, No chest tenderness, No respiratory distress Cardiovascular: regular rate/rhythm, capillary refill <2 sec, No murmur, No pulse deficit Gastrointestinal: soft, No tenderness, No distention, No mass Back Exam: normal inspection, normal range of motion, other (Chronic back pain) Extremity Exam: normal inspection, normal range of motion, pelvis stable, No tenderness cctv technician Exam: normal speech, PERRL, No facial droop SpO2: 95 - Course Nursing assessment & vital signs reviewed: Yes EKG Interpreted by Me: RATE (64bpm), Sinus Rhythm Rhythm Strip: 2nd degree type I block - CT Exams Head CT Interpretation: Negative (No acute abnormality) Ordered Tests: Active Orders 24 hr Category Date Time Status Spool Cleaner STAT Care 08/27/18 12:57 Active EKG-ER Only STAT Care 08/27/18 12:57 Active IV Insertion STAT Care 08/27/18 12:57 Active Orthostatic Vital Signs STAT Care 08/27/18 13:04 Active HEAD WITHOUT CONTRAST [CT] Stat Exams 08/27/18 13:04 Completed CBC W DIFF Stat Lab 08/27/18 12:50 Completed CMP Stat Lab 08/27/18 12:50 Completed TROPONIN Q3H Lab 08/27/18 12:50 Completed TROPONIN Q3H Lab 08/27/18 16:00 Received TROPONIN Q3H Lab 08/27/18 19:15 Ordered TROPONIN Q3H Lab 08/27/18 22:15 Ordered UA W/RFX UR CULTURE Stat Lab 08/27/18 15:36 Completed Medication Summary Discontinued Medications Generic Name Dose Route Start Last Admin Trade Name Freq PRN Reason Stop Dose Admin Acetaminophen 1,000 mg 08/27/18 14:25 08/27/18 14:28 Tylenol Extra Strength 500 Mg PO 08/27/18 14:26 1,000 mg STAT STA Administration Acetaminophen Confirm 08/27/18 14:27 Tylenol Extra Strength 500 Mg Administered 08/27/18 14:28 Dose 1,000 mg .ROUTE .STK-MED ONE Sodium Chloride 1,000 mls @ 999 mls/hr 08/27/18 13:04 08/27/18 14:23 Sodium Chloride 0.9% 1000 Ml IV 08/27/18 14:04 Infused .Q1H1M STA Infusion Sodium Chloride Confirm 08/27/18 13:41 Sodium Chloride 0.9% 1000 Ml Administered 08/27/18 13:42 Dose 1,000 mls @ ud .ROUTE .STK-MED ONE Lab/Rad Data: Laboratory Result Diagrams 08/27/18 12:50 08/27/18 12:50 Laboratory Results 08/27/18 08/27/18 08/27/18 Range/Units 15:36 12:50 12:50 WBC (4.0-10.5) K/mm3 RBC (4.1-5.6) M/mm3 Hgb (12.5-18.0) gm/dl Hct (42-50) % MCV (78-100) fl MCH (26-32) pg MCHC (32-36) g/dl RDW (11.5-14.0) % Plt Count (150-450) K/mm3 MPV (6-9.5) fl Gran % (36.0-66.0) % Eos # (Auto) (0-0.5) Absolute Lymphs (auto) (1.0-4.6) Absolute Monos (auto) (0.0-1.3) Lymphocytes % (24.0-44.0) % Monocytes % (0.0-12.0) % Eosinophils % (0.00-5.0) % Basophils % (0.0-0.4) % Absolute Granulocytes (1.4-6.9) Basophils # (0-0.4) Sodium 139 (137-145) mmol/L Potassium 4.2 (3.5-5.1) mmol/L Chloride 102 (98-107) mmol/L Carbon Dioxide 25 (22-30) mmol/L Anion Gap 16.1 H (5-15) MEQ/L BUN 15 (9-20) mg/dL Creatinine 0.99 (0.66-1.25) mg/dL Estimated GFR > 60.0 ML/MIN Glucose 118 H (74-106) mg/dL Calcium 9.7 (8.4-10.2) mg/dL Total Bilirubin 0.40 (0.2-1.3) mg/dL AST 23 (17-59) U/L ALT 8 (0-50) U/L Alkaline Phosphatase 69 (38-126) U/L Troponin I < 0.012 (0.000-0.034) ng/mL Serum Total Protein 7.0 (6.3-8.2) g/dL Albumin 4.0 (3.5-5.0) g/dL Urine Color YELLOW (YELLOW) Urine Appearance CLEAR (CLEAR) Urine pH 6.0 (5-6) Ur Specific Left Hand 1.015 (1.005-1.025) Urine Protein NEGATIVE (Negative) Urine Ketones TRACE (NEGATIVE) Urine Blood NEGATIVE (0-5) Darrin/ul Urine Nitrite NEGATIVE (NEGATIVE) Urine Bilirubin NEGATIVE (NEGATIVE) Urine Urobilinogen NEGATIVE (0-1) mg/dL Ur Leukocyte Esterase NEGATIVE (NEGATIVE) Urine WBC (Auto) NONE (0-5) /HPF Urine RBC (Auto) NONE (0-2) /HPF U Epithel Cells (Auto) NONE (FEW) /HPF Urine Bacteria (Auto) NONE (NEGATIVE) /HPF Urine Mucus (Auto) SLIGHT (NEGATIVE) /HPF Urine Culture Reflexed NO (NO) Urine Glucose NEGATIVE (NEGATIVE) mg/dL 08/27/18 Range/Units 12:50 WBC 8.8 (4.0-10.5) K/mm3 RBC 4.65 (4.1-5.6) M/mm3 Hgb 14.1 (12.5-18.0) gm/dl Hct 43.5 (42-50) % MCV 93.5 (78-100) fl MCH 30.3 (26-32) pg MCHC 32.4 (32-36) g/dl RDW 14.2 H (11.5-14.0) % Plt Count 220 (150-450) K/mm3 MPV 9.7 H (6-9.5) fl Gran % 47.5 (36.0-66.0) % Eos # (Auto) 0.14 (0-0.5) Absolute Lymphs (auto) 3.42 (1.0-4.6) Absolute Monos (auto) 1.06 (0.0-1.3) Lymphocytes % 38.7 (24.0-44.0) % Monocytes % 12.0 (0.0-12.0) % Eosinophils % 1.6 (0.00-5.0) % Basophils % 0.2 (0.0-0.4) % Absolute Granulocytes 4.20 (1.4-6.9) Basophils # 0.02 (0-0.4) Sodium (137-145) mmol/L Potassium (3.5-5.1) mmol/L Chloride (98-107) mmol/L Carbon Dioxide (22-30) mmol/L Anion Gap (5-15) MEQ/L BUN (9-20) mg/dL Creatinine (0.66-1.25) mg/dL Estimated GFR ML/MIN Glucose (74-106) mg/dL Calcium (8.4-10.2) mg/dL Total Bilirubin (0.2-1.3) mg/dL AST (17-59) U/L ALT (0-50) U/L Alkaline Phosphatase (38-126) U/L Troponin I (0.000-0.034) ng/mL Serum Total Protein (6.3-8.2) g/dL Albumin (3.5-5.0) g/dL Urine Color (YELLOW) Urine Appearance (CLEAR) Urine pH (5-6) Ur Specific Left Hand (1.005-1.025) Urine Protein (Negative) Urine Ketones (NEGATIVE) Urine Blood (0-5) Darrin/ul Urine Nitrite (NEGATIVE) Urine Bilirubin (NEGATIVE) Urine Urobilinogen (0-1) mg/dL Ur Leukocyte Esterase (NEGATIVE) Urine WBC (Auto) (0-5) /HPF Urine RBC (Auto) (0-2) /HPF U Epithel Cells (Auto) (FEW) /HPF Urine Bacteria (Auto) (NEGATIVE) /HPF Urine Mucus (Auto) (NEGATIVE) /HPF Urine Culture Reflexed (NO) Urine Glucose (NEGATIVE) mg/dL - Progress Progress: improved Progress Note: 08/27/18 16:34 Pt had labs, EKG and head CT done. All were normal. Pt does have sinus arrhythmia, that is chronic. His head CT was normal for age. IVF 1 lit was given. Pt felt much better post IV. Pt is cleared for d/c. He should f/u with his neurologist as progression of dementia and parkinson's can cause BP variation, and he should make sure that his dsx is controlled. Pt should f/u with his PCP. Discussed with : Mecca Will see patient in: office Counseled pt/family regarding: need for follow-up - Departure Departure Disposition: Home Clinical Impression: Pre-syncope Condition: Stable Critical Care Time: No Referrals: PORSHA MERLOS [Primary Care Provider] - Additional Instructions: F/U with PCP and Neurology. Drink plenty of fluids.
[2018-08-27 16:49] VITALS: BP 142/87; PULSE 68; O2SAT 96
== END 2018-08-27 16:55 | disposition home or self-care (01) ==
LOC: ED 12:45
DX: R55 Syncope and collapse (principal); G20 Parkinson's disease; F02.80 Dementia in other diseases classified elsewhere, unspecified severity, without behavioral disturbance, psychotic disturbance, mood disturbance, and anxiety; I10 Essential (primary) hypertension; E78.00 Pure hypercholesterolemia, unspecified; E11.9 Type 2 diabetes mellitus without complications; Z79.4 Long term (current) use of insulin; M19.90 Unspecified osteoarthritis, unspecified site; Z79.899 Other long term (current) drug therapy
CPT/HCPCS: 36000; 36415; 70450; 80053; 81001; 84484; 85025; 93005; 93041; 96360; 99284; A9270-GY

== ENCOUNTER 2020-07-20 13:24 | Emergency (ER) | payer MEDICARE, OTHER ==
[2020-07-20] MEDS ORDERED: Sodium Chloride 0.9% 1000 ML 1,000 ML IV SCH (13:30)
[2020-07-20] MEDS ORDERED: Sodium Chloride 0.9% 1000 ML 1,000 ML ONE (13:32)
--- NOTE | 2020-07-20 13:35 | ERPHSYRPT ---
- History of Present Illness Time Seen by Provider: 07/20/20 13:40 Source: patient Physician History: Patient is an 85-year-old male presents to our ED for evaluation of syncope. Patient was awaiting a lab draw when he passed out. states that he complained of back pain prior to syncope. Patient was here to obtain routine labs. He had fasted for 12 hours. A code rapid was called. Upon arrival patient was a little lethargic. His words are slightly slurred. However no focal or lateralizing symptoms observed. No associated chest pain or shortness of breath. No nausea vomiting or diaphoresis. Symptoms were transient however moderate in intensity. No specific worsening or improving factors. Patient voiced no other complaints or concerns at this time. Timing/Duration: today Severity: moderate Modifying Factors: Improves With: nothing Associated Symptoms: other (Mild back pain.) Allergies/Adverse Reactions: Sulfa (Sulfonamide Antibiotics) Allergy (Severe, Verified 08/27/18 13:17) Swelling of Tongue and Lips Home Medications: Aspirin EC 81 mg [Ecotrin 81 mg] 81 mg PO DAILY 08/27/18 [History] Carbidopa/Levodopa [Carbidopa-Levodopa 25-250 Tab] 1 each PO TID 08/27/18 [History] Diphenhydramine HCl [Sleep-Aid] 25 mg PO HS 08/27/18 [History] Gabapentin 400 mg [Neurontin 400 MG] 400 mg PO TID 08/27/18 [History] Melatonin 10 mg PO HS 08/27/18 [History] Memantine HCl/Donepezil HCl [Namzaric 28 mg-10 mg Capsule] 1 each PO HS 08/27/18 [History] Metformin HCl 500 mg [Glucophage 500 MG] 500 mg PO BIDWM 08/27/18 [History] Omeprazole 20 mg PO DAILY 08/27/18 [History] Hx Tetanus, Diphtheria Vaccination/Date Given: No Hx Influenza Vaccination/Date Given: Yes Hx Pneumococcal Vaccination/Date Given: Yes - Review of Systems Constitutional: No Symptoms, No Fever, No Chills Eyes: No Symptoms Ears, Nose, & Throat: No Symptoms Respiratory: No Symptoms, No Cough, No Dyspnea Cardiac: No Symptoms, No Chest Pain, No Edema, No Syncope Abdominal/Gastrointestinal: No Symptoms, No Abdominal Pain, No Nausea, No Vomiting, No Diarrhea Genitourinary Symptoms: No Symptoms, No Dysuria Musculoskeletal: No Symptoms, No Back Pain, No Neck Pain Skin: No Symptoms, No Rash Neurological: No Symptoms, No Dizziness, No Focal Weakness, No Sensory Changes Psychological: No Symptoms Endocrine: No Symptoms Hematologic/Lymphatic: No Symptoms Immunological/Allergic: No Symptoms All Other Systems: Reviewed and Negative - Past Medical History Pertinent Past Medical History: Yes Neurological History: Alzheimer's Disease, Stroke, Other ENT History: No Pertinent History Cardiac History: High Cholesterol, Hypertension Respiratory History: No Pertinent History Endocrine Medical History: Diabetes Type II Musculoskeletal History: Osteoarthritis GI Medical History: Hemorrhoids History: No Pertinent History Psycho-Social History: No Pertinent History Male Reproductive Disorders: No Pertinent History Other Medical History: See chart for medical history, Parkinson's Disease. - Past Surgical History Past Surgical History: Yes Neuro Surgical History: No Pertinent History Cardiac: No Pertinent History Respiratory: No Pertinent History Gastrointestinal: No Pertinent History Genitourinary: No Pertinent History Musculoskeletal: Other Male Surgical History: No Pertinent History Other Surgical History: right shoulder surgery, egd and coloscopy. steroid injection to lumbar area x 2 for chronic back pain - Social History Smoking Status: Never smoker Exposure to second hand smoke: No Drug Use: none Patient Lives Alone: No - Nursing Vital Signs Nursing Vital Signs: Initial Vital Signs Temperature 97.3 F 07/20/20 13:25 Pulse Rate 67 07/20/20 13:25 Respiratory Rate 18 07/20/20 13:25 Blood Pressure 113/63 07/20/20 13:25 O2 Sat by Pulse Oximetry 98 07/20/20 13:25 Pain Scale Pain Intensity 4 - Physical Exam General Appearance: no apparent distress, alert Eye Exam: PERRL/EOMI, eyes nml inspection Ears, Nose, Throat Exam: normal ENT inspection, TMs normal, pharynx normal, moist mucous membranes Neck Exam: normal inspection, non-tender, supple, full range of motion Respiratory Exam: normal breath sounds, lungs clear, No respiratory distress Cardiovascular Exam: regular rate/rhythm, normal heart sounds, normal peripheral pulses Gastrointestinal/Abdomen Exam: soft, normal bowel sounds, No tenderness, No mass Back Exam: normal inspection, normal range of motion, No CVA tenderness, No vertebral tenderness Extremity Exam: normal inspection, normal range of motion, pelvis stable Neurologic Exam: alert, oriented x 3, cooperative, normal mood/affect, nml cerebellar function, nml station & gait, sensation nml, No motor deficits Skin Exam: normal color, warm, dry, No rash Lymphatic Exam: No adenopathy SpO2 Interpretation: normal SpO2: 98 O2 Delivery: Room Air - Course Nursing assessment & vital signs reviewed: Yes EKG Interpreted by Me: RATE (67), Sinus Rhythm, NORMAL AXIS, NORMAL INTERVALS - Radiology Exams Chest X-ray Interpretation: Teleradiologist Report (Nonacute chest with chronic features.) - CT Exams Head CT Interpretation: Tele-radiologist Report (CT head reveals new right thalamus remote lacunar infarct. There are some atrophy and degenerative microischemia. No acute intracranial pathology.) Ordered Tests: Active Orders 24 hr Category Date Time Status AMA [Release AMA] OM.NOW Care 07/20/20 16:44 Active Remarketing Rep STAT Care 07/20/20 13:27 Active EKG-ER Only STAT Care 07/20/20 13:27 Active IV Insertion STAT Care 07/20/20 13:27 Active Pulse Oximetry (ED) STAT Care 07/20/20 13:27 Active CHEST 1 VIEW (PORTABLE) Stat Exams 07/20/20 13:27 Completed HEAD WITHOUT CONTRAST [CT] Stat Exams 07/20/20 13:28 Completed CBC W DIFF Stat Lab 07/20/20 13:42 Completed CMP Stat Lab 07/20/20 13:42 Completed TROPONIN Q3H Lab 07/20/20 13:42 Completed TROPONIN Q3H Lab 07/20/20 16:37 Received TROPONIN Q3H Lab 07/20/20 19:30 Ordered TROPONIN Q3H Lab 07/20/20 22:30 Ordered TROPONIN Q3H Lab 07/21/20 01:30 Ordered Medication Summary Generic Name Dose Route Start Last Admin Trade Name Freq PRN Reason Stop Dose Admin Sodium Chloride 1,000 mls @ 100 mls/hr 07/20/20 13:30 07/20/20 13:33 Sodium Chloride 0.9% 1000 Ml IV 08/19/20 13:29 100 mls/hr .Q10H GIBRAN Administration Discontinued Medications Generic Name Dose Route Start Last Admin Trade Name Freq PRN Reason Stop Dose Admin Acetaminophen 650 mg 07/20/20 15:49 07/20/20 16:00 Tylenol 325 Mg PO 07/20/20 15:50 650 mg STAT STA Administration Acetaminophen Confirm 07/20/20 16:00 Tylenol 325 Mg Administered 07/20/20 16:01 Dose 650 mg .ROUTE .K-MED ONE Lab/Rad Data: Laboratory Result Diagrams 07/20/20 13:42 07/20/20 13:42 Laboratory Results 07/20/20 07/20/20 07/20/20 Range/Units 13:42 13:42 13:42 WBC 9.9 (4.0-10.5) K/mm3 RBC 4.54 (4.1-5.6) M/mm3 Hgb 13.4 (12.5-18.0) gm/dl Hct 42.5 (42-50) % MCV 93.6 (78-100) fl MCH 29.5 (26-32) pg MCHC 31.5 L (32-36) g/dl RDW 14.9 H (11.5-14.0) % Plt Count 238 (150-450) K/mm3 MPV 9.5 (7.5-11.0) fl Gran % 61.5 (36.0-66.0) % Eos # (Auto) 0.18 (0-0.5) Absolute Lymphs (auto) 2.65 (1.0-4.6) Absolute Monos (auto) 0.97 (0.0-1.3) Lymphocytes % 26.7 (24.0-44.0) % Monocytes % 9.8 (0.0-12.0) % Eosinophils % 1.8 (0.00-5.0) % Basophils % 0.2 (0.0-0.4) % Absolute Granulocytes 6.10 (1.4-6.9) Basophils # 0.02 (0-0.4) Sodium 139 (137-145) mmol/L Potassium 3.9 (3.5-5.1) mmol/L Chloride 102 (98-107) mmol/L Carbon Dioxide 28 (22-30) mmol/L Anion Gap 13.5 (5-15) MEQ/L BUN 16 (9-20) mg/dL Creatinine 0.83 (0.66-1.25) mg/dL Estimated GFR > 60.0 ML/MIN Glucose 99 (74-106) mg/dL Calcium 9.6 (8.4-10.2) mg/dL Total Bilirubin 0.40 (0.2-1.3) mg/dL AST 26 (17-59) U/L ALT < 4 (0-50) U/L Alkaline Phosphatase 81 (38-126) U/L Troponin I < 0.012 (0.000-0.034) ng/mL Serum Total Protein 6.6 (6.3-8.2) g/dL Albumin 3.8 (3.5-5.0) g/dL - Progress Progress: improved Progress Note: Patient reassessed. He is back at his baseline. We advised admission for syncopal work-up. Patient declined. Patient states he wants to go home. Case discussed with patient's primary care doctor Dr. Beckham who will follow up with patient as an outpatient. Neuro advised checking orthostatics working up for possible autonomic dysfunction admission with telemetry and a transthoracic echo. However patient will leave AGAINST MEDICAL ADVICE. Patient is of sound mind. Patient is appropriate to make informed and independent medical decisions. Patient understands that leaving AGAINST MEDICAL ADVICE can result in delayed diagnosis, increased risk of morbidity, mortality, short and long-term disability including . In spite of these risks, patient has decided to leave AGAINST MEDICAL ADVICE. Patient understands that he may return to our ED at any point if he or she reconsiders. Patient agrees to follow-up with his or her primary care doctor within 48 hours for reevaluation. Patient voices no other complaints or concerns at this time. We will release patient AGAINST MEDICAL ADVICE per their request. 07/20/20 16:54 07/20/20 17:07 Discussed with .: [place] Will see patient in: office Counseled pt/family regarding: lab results, diagnosis, need for follow-up, rad results - Departure Departure Disposition: AMA Clinical Impression: Syncope Condition: Stable Critical Care Time: No Referrals: PORSHA BECKHAM [Primary Care Provider] - Additional Instructions: Discharge/Care Plan CARLOS BLACK was seen on 07/20/20 in the Emergency Room. The patient was counseled regarding Diagnosis,Lab results, Imaging studies, need for follow up and when to return to the Emergency Room. Prescriptions given: Discharge Note I have spoken with the patient and/or caregivers. I have explained the patient's condition, diagnosis and treatment plan based on the information available to me at this time. I have answered the patient's and/or caregiver's questions and addressed any concerns. The patient and/or caregivers have as good understanding of the patient's diagnosis, condition and treatment plan as can be expected at this point. The vital signs have been stable. The patient's condition is stable and appropriate for discharge from the emergency department. The patient will pursue further outpatient evaluation with the primary care physician or other designated or consulting physician as outlined in the discharge instructions. The patient and/or caregivers are agreeable to this plan of care and follow-up instructions have been explained in detail. The patient and/or caregivers have received these instruction. The patient/and or caregivers are aware that any significant change in condition or worsening of symptoms should prompt an immediate return to this or the closest emergency department or call 911.
[2020-07-20 13:37] VITALS: O2SAT 98
[2020-07-20 13:43] LABS: BASOPHIL % 0.2 % (0.0-0.4); Basophil (Absolute #) 0.02 (0-0.4); Eosinophil % 1.8 % (0.00-5.0); Eosinophil (Absolute #) 0.18 (0-0.5); Hematocrit 42.5 % (42-50); Hemoglobin 13.4 gm/dl (12.5-18.0); Lymphocyte (Absolute #) 2.65 (1.0-4.6); Lymphocytes % 26.7 % (24.0-44.0); Mean Cell Volume 93.6 fl (78-100); Mean Corpuscular Hemoglobin 29.5 pg (26-32); Mean Corpuscular Hgb Concent. 31.5 g/dl (32-36); Mean Platelet Volume 9.5 fl (7.5-11.0); Monocyte (Absolute #) 0.97 (0.0-1.3); Monocytes % 9.8 % (0.0-12.0); Neutrophil % 61.5 % (36.0-66.0); Platelet Count 238 K/mm3 (150-450); Red Blood Count 4.54 M/mm3 (4.1-5.6); Red Cell Distribution Width 14.9 % (11.5-14.0); White Blood Count 9.9 K/mm3 (4.0-10.5)
--- NOTE | 2020-07-20 13:50 | XRAY ---
Indication: Syncope. Stroke. Multiple contiguous axial images obtained through the head without contrast. Comparison: August 27, 2018. There is again age-appropriate global atrophy with mild periventricular degenerative micro-ischemia bilaterally. New right thalamus remote lacunar infarct. No acute intracranial hemorrhage, abnormal extra-axial fluid collection, or mass effect. Fourth ventricle is midline without hydrocephalus. Bony calvarium intact. Visualized paranasal sinuses and mastoid air cells are clear. Impression: 1. New right thalamus remote lacunar infarct. 2. Again atrophy and degenerative micro-ischemia within normal limits for patient's age. 3. No acute intracranial abnormalities.
--- NOTE | 2020-07-20 13:52 | XRAY ---
Indication: Syncope. Comparison: August 19, 2017. Portable chest less inflated with minimal left base subsegmental atelectasis/scarring. No focal infiltrate, consolidation, or large effusion. Heart is not enlarged again with tortuous descending aorta. Bony thorax intact again with osteopenia, degenerative changes, and right shoulder arthroplasty. Impression: Nonacute chest with chronic features.
[2020-07-20 14:03] LABS: ALBUMIN 3.8 g/dL (3.5-5.0); ALKALINE PHOSPHATASE 81 U/L (38-126); ANION GAP 13.5 MEQ/L (5-15); BLOOD UREA NITROGEN 16 mg/dL (9-20); CHLORIDE 102 mmol/L (98-107); Calcium 9.6 mg/dL (8.4-10.2); Carbon Dioxide 28 mmol/L (22-30); Creatinine 1 0.83 mg/dL (0.66-1.25); EST GLOMERULAR FILTRATION RATE > 60.0 ML/MIN; Glucose 99 mg/dL (74-106); Potassium 3.9 mmol/L (3.5-5.1); SGOT/AST 26 U/L (17-59); SODIUM 139 mmol/L (137-145); Total Protein 6.6 g/dL (6.3-8.2)
[2020-07-20 14:08] LABS: SGPT/ALT < 4 U/L (0-50)
[2020-07-20] MEDS ORDERED: TYLENOL 325 MG PO STA (15:49)
[2020-07-20] MEDS ORDERED: TYLENOL 325 MG ONE (16:00)
[2020-07-20 17:08] VITALS: BP 118/72; PULSE 64
== END 2020-07-20 17:21 | disposition left against medical advice (07) ==
LOC: ED 13:24
DX: R55 Syncope and collapse (principal); I10 Essential (primary) hypertension; E11.9 Type 2 diabetes mellitus without complications; G30.9 Alzheimer's disease, unspecified; F02.80 Dementia in other diseases classified elsewhere, unspecified severity, without behavioral disturbance, psychotic disturbance, mood disturbance, and anxiety; Z79.899 Other long term (current) drug therapy
CPT/HCPCS: 36000; 36415; 70450; 71045; 80053; 84484; 85025; 93005; 93041; 94760; 99284; A9270-GY